=== PATIENT | female | born 1965 ===

== ENCOUNTER 2018-06-30 14:39 | Emergency (ER) | payer OTHER ==
[2018-06-30 15:07] VITALS: RESP 18; O2SAT 100; BMI 34.7
[2018-06-30 15:50] LABS: BASO # 0.01 K/mm3 (0.0-2.0); BASO % 0.2 % (0.0-3.0); EOS # 0.1 (0.0-0.7); EOS % 0.9 % (1.5-5.0); GRAN # 3.56 (1.4-6.5); GRAN % 62.4 % (50.0-68.0); HEMOGLOBIN 13.6 g/dL (12.0-16.0); LYMPH # 1.4 (1.2-3.4); LYMPH % 25.3 % (22.0-35.0); MEAN CELL VOLUME 86.5 fl (80.0-105.0); MEAN CORPUSCULAR HEMOGLOBIN 28.6 pg (25.0-35.0); MEAN CORPUSCULAR HGB CONC 33.1 g/dl (31.0-37.0); MEAN PLATELET VOLUME 9.8 fl (7.0-11.0); MONO # 0.6 (0.1-0.6); MONO % 11.2 % (1.0-6.0); RBC 4.75 10^6/uL (3.5-6.1); RED CELL DISTRIBUTION WIDTH 19.4 % (11.5-14.5); WHITE BLOOD COUNT 5.7 10^3/uL (4.5-11.0)
[2018-06-30 15:57] LABS: INR 1.03; PARTIAL THROMBOPLASTIN TIME 22.1 Seconds (25.1-36.5); PROTHROMBIN TIME 11.8 SECONDS (9.4-12.5)
[2018-06-30 15:59] LABS: ALB/GLOB RATIO 1.3 (1.1-1.8); ALBUMIN 4.4 g/dL (3.0-4.8); ALT/SGPT 20 U/L (7-56); AST/SGOT 32 U/L (14-36); BLOOD UREA NITROGEN 14 mg/dL (7-21); CALCIUM 9.9 mg/dL (8.4-10.5); GFR NON-AFRICAN AMERICAN > 60
[2018-06-30 16:17] LABS: PH,URINE 6.5 (4.7-8.0); URINE BILIRUBIN NEGATIVE (NEGATIVE); URINE BLOOD LARGE (NEGATIVE); URINE GLUCOSE (UA) NEGATIVE (NEGATIVE); URINE LEUKOCYTE ESTERASE NEGATIVE Leu/uL (NEGATIVE); URINE PROTEIN NEGATIVE mg/dL (<30 mg/dL); URINE UROBILINOGEN 0.2 E.U./dL (<1 E.U./dL)
[2018-06-30 16:20] LABS: URINE APPEARANCE SL CLOUDY (CLEAR); URINE COLOR YELLOW (YELLOW)
--- NOTE | 2018-06-30 16:22 | RAD ---
Date of service: 06/30/2018 PROCEDURE: Radiographs of the Right Shoulder HISTORY: fall COMPARISON: No prior. FINDINGS: BONES: Normal. No fracture. JOINTS: Normal. Glenohumeral and acromioclavicular joints preserved. No osteoarthritis. SOFT TISSUES: Normal. OTHER FINDINGS: None. IMPRESSION: Normal radiographs of the right shoulder.
--- NOTE | 2018-06-30 16:23 | RAD ---
Date of service: 06/30/2018 PROCEDURE: Radiographs of the left tibia and fibula. HISTORY: fall, leg pain COMPARISON: None available. TECHNIQUE: Frontal and lateral views obtained. FINDINGS: BONES: No fracture or destructive lesion. JOINT SPACES: Unremarkable. OTHER FINDINGS: None. IMPRESSION: Unremarkable radiographs of the left tibia and fibula.
[2018-06-30] MEDS ORDERED: Iodixanol 320 mg/ml 150 ml Bottle IV ONE (16:40)
[2018-06-30 16:46] LABS: URINE BACTERIA FEW (NEG); URINE RBC 15 - 20 /hpf (0-2)
--- NOTE | 2018-06-30 17:35 | ED PDOC ---
Arrival/HPI - General Chief Complaint: Trauma Time Seen by Provider: 06/30/18 14:40 Historian: Patient, Family, Other (coworker) - History of Present Illness Narrative History of Present Illness (Text): 06/30/18 17:32 53yr old female presents today with right shoulder pain, back pain, neck pain, left lower leg pain and upper abdominal pain s/p fall. pt states that she slipped and fell down 12 stairs. pt states she hit her head. no loc. pt denies numbness, weakness, tingling in the extremity. pt states incident occurred at 1: 30pm. no medications taken for pain. no other complaints. Time/Duration: 1-3 hours Symptom Onset: Sudden Symptom Course: Unchanged Quality: Aching, Throbbing Severity Level: Moderate Past Medical History - Provider Review Nursing Documentation Reviewed: Yes - Travel History Have you recently traveled outside [place] w/in the past 3 mons?: No - Infectious Disease Hx of Infectious Diseases: None - Cardiac Hx Cardiac Disorders: Yes Hx Cardiac Arrhythmia: Yes (TACHYCARDIA) Hx Hypertension: Yes - Pulmonary Hx Respiratory Disorders: No - Neurological Hx Neurological Disorder: Yes Hx Migraine: Yes - HEENT Hx HEENT Disorder: Yes (eyeglasses) - Renal Hx Renal Disorder: No - Endocrine/Metabolic Hx Endocrine Disorders: Yes Hx Hypothyroidism: Yes - Hematological/Oncological Hx Blood Disorders: No - Integumentary Hx Dermatological Disorder: Yes Other/Comment: lump to left shoulder, abrasion left knee - Musculoskeletal/Rheumatological Hx Musculoskeletal Disorders: No Hx Falls: Yes (dizzy/fell today denies loc) - Gastrointestinal Hx Gastrointestinal Disorders: Yes (obese, chronic constipation) Hx Gall Bladder Disease: Yes (gallstones) Hx Gastroesophageal Reflux: Yes Other/Comment: internal hemorrhoids, chronic gastritis - Genitourinary/Gynecological Hx Genitourinary Disorders: Yes (mammo 01/16/17) Other/Comment: dx 6 yrs ago in [place] with fibroids pt having heavy menstrual bleeding, fibroids grew larger instead of shrinking as per daughter. Pt came to [facility] 2 yrs ago chronic heavy periods continued having 1/2 cycles a month and 20 pads a day - Psychiatric Hx Psychophysiologic Disorder: No Hx Emotional Abuse: No Hx Physical Abuse: No Hx Substance Use: No - Surgical History Hx Cholecystectomy: Yes (lap mary) - Anesthesia Hx Anesthesia: Yes Hx Anesthesia Reactions: No Hx Malignant Hyperthermia: No - Suicidal Assessment Feels Threatened In Home Enviroment: No Family/Social History - Physician Review Nursing Documentation Reviewed: Yes Family/Social History: Unknown Family HX Smoking Status: Never Smoked Hx Alcohol Use: No Hx Substance Use: No Allergies/Home Meds Allergies/Adverse Reactions: Allergies No Known Allergies Allergy (Verified 07/08/16 12:16) Home Medications: Home Meds Medication Instructions Recorded Confirmed Simvastatin [Zocor] 20 mg PO DAILY 08/04/17 04/09/18 Omeprazole 20 mg PO BID 04/09/18 04/09/18 Review of Systems - Review of Systems Constitutional: absent: Fatigue, Fevers ENT: absent: Sore Throat, Epistaxis, Sinus Congestion Respiratory: absent: SOB, Cough Cardiovascular: absent: Chest Pain, Palpitations Gastrointestinal: Abdominal Pain. absent: Constipation, Diarrhea, Nausea, Vomiting Genitourinary Female: absent: Dysuria, Frequency, Hematuria, Urine Output C hanges Musculoskeletal: Arthralgias, Back Pain, Neck Pain Skin: absent: Rash, Pruritis Neurological: Headache. absent: Dizziness Psychiatric: absent: Anxiety, Depression Physical Exam Vital Signs Reviewed: Yes Vital Signs Temp Pulse Resp BP Pulse Ox 06/30/18 16:39 79 18 121/78 100 06/30/18 14:48 98.0 F 86 18 125/85 100 Temperature: Afebrile Blood Pressure: Normal Pulse: Regular Respiratory Rate: Normal Appearance: Positive for: Well-Appearing, Non-Toxic, Comfortable Pain Distress: None Mental Status: Positive for: Alert and Oriented X 3 - Systems Exam Head: Present: Atraumatic, Other (NO CABELLO SIGN). No: Tenderness, Swelling, Ecchymosis Pupils: Present: PERRL Extroacular Muscles: Present: EOMI Conjunctiva: Present: Normal Ears: Present: Normal, Normal Canal, Other (no hemotynpanum). No: Erythema Mouth: Present: Moist Mucous Membranes Pharnyx: Present: Normal Nose (External): Present: Atraumatic Nose (Internal): Present: Normal Inspection Neck: Present: Normal Range of Motion, Paraspinal Tenderness. No: MIDLINE TENDERNESS Respiratory/Chest: Present: Clear to Auscultation, Good Air Exchange. No: Respiratory Distress, Accessory Muscle Use Cardiovascular: Present: Regular Rate and Rhythm, Normal S1, S2. No: Murmurs Abdomen: Present: Tenderness (+ ruq/epigastric tenderness). No: Distention, Peritoneal Signs, Rebound, Guarding Back: Present: Normal Inspection, Paraspinal Tenderness Upper Extremity: Present: Normal Inspection, Normal ROM, NORMAL PULSES, Tenderness (right shoulder + ttp over anterior and posterior aspect of shoulder; full rom of shoulder with pain; sensation and distal pulses intact. ), Neurovascularly Intact, Capillary Refill < 2s. No: Swelling, Erythema Lower Extremity: Present: Normal Inspection, Normal ROM, Tenderness (left leg; + ttp over left tib fib; no edema, no erythema; no ecchymosis; full rom of leg; pelvis stable. ambulating with steady gait. ) Neurological: Present: GCS=15, Speech Normal, Motor Func Grossly Intact, Normal Sensory Function Skin: Present: Warm, Dry, Normal Color. No: Rashes Psychiatric: Present: Alert, Oriented x 3 Medical Decision Making ED Course and Treatment: 06/30/18 17:46 53yr old female presenting s/p fall down 12 steps. cbc;wnl cmp; wnl pt/ptt; wnl ua: + blood ct head; FINDINGS: HEMORRHAGE: No intracranial hemorrhage. BRAIN: No mass effect or edema. The rojas-white matter differentiation appears intact. Please note that MRI with diffusion imaging is more sensitive in the detection of acute ischemic event. VENTRICLES: No hydrocephalus. CALVARIUM: Unremarkable. PARANASAL SINUSES: Unremarkable as visualized. No significant inflammatory changes. MASTOID AIR CELLS: Fluid within bilateral mastoid air cells. Under aeration of the left air cells noted. Correlate clinically for history of mastoiditis. OTHER FINDINGS: None. IMPRESSION: No acute intracranial pathology identified. Fluid within bilateral mastoid air cells. Under aeration of the left air cells noted. Correlate clinically for history of mastoiditis. ct neck: Findings: Straightening of the normal cervical lordosis may be related to muscle spasm or positioning. There is no evidence of acute fracture or subluxation. There is preserved alignment, vertebral body height, intervertebral disc spaces. The prevertebral soft tissues and spinolaminar lines appear intact. The lateral masses are preserved. The dens tip is intact. There is proper alignment of the lateral masses of C1 with the C2 vertebral body. Included portions of the thyroid gland appear heterogeneous with suspected hypodense right mid/lower pole nodule. Included portions of lung apices appear clear. Fluid within bilateral partially imaged mastoid air cells. Impression: Straightening of the normal cervical lordosis may be related to muscle spasm or positioning. No evidence of acute fracture or subluxation. Included portions of the thyroid gland appear heterogeneous with suspected hypodense right mid/lower pole nodule. Outpatient thyroid ultrasound may be considered for further evaluation. Fluid within bilateral partially imaged mastoid air cells. Correlate clinically for possibility of mastoiditis. ct chest/abd/pelvis; FINDINGS: CT CHEST WITH CONTRAST: LUNGS: Clear. No nodule, mass or consolidation. MEDIASTINUM: Unremarkable. Normal caliber aorta and pulmonary arterial trunk. No aortic dissection. Normal size heart. LYMPH NODES: Unremarkable. PLEURA: Unremarkable. No pneumothorax. No pleural fluid. BONES: Unremarkable. OTHER FINDINGS: Heterogeneous enhancement of the right lobe of the thyroid possible thyroid nodule bilaterally. Recommend elective thyroid ultrasound. CT ABDOMEN AND PELVIS: LIVER: Unremarkable. No gross lesion or ductal dilatation. Incidental finding(s): Cyst right hepatic lobe 2.3 x 3.9 cm. GALLBLADDER AND BILE DUCTS: Status post cholecystectomy. No abnormality is seen in the gallbladder fossa. PANCREAS: Unremarkable. No gross lesion or ductal dilatation. SPLEEN: Unremarkable. ADRENALS: Unremarkable. No mass. KIDNEYS AND URETERS: Unremarkable. No hydronephrosis. No solid mass. VASCULATURE: No aortic atherosclerotic calcification or mural plaque present. Unremarkable. No aortic aneurysm. BOWEL: Unremarkable. No obstruction. No gross mural thickening. APPENDIX: No abnormalities to suggest acute appendicitis. No right lower quadrant inflammatory processes identified. PERITONEUM: Unremarkable. No free fluid. No free air. LYMPH NODES: Unremarkable. No enlarged lymph nodes. BLADDER: Unremarkable. REPRODUCTIVE: Enlarged, anteverted uterus, similar finding identified on the prior study. BONES: No acute fracture. OTHER FINDINGS: None. IMPRESSION: No acute findings related to/ accounting for the clinical presentation. Additional benign and/or incidental findings described above. xray right shoulder; no fracture xray left tib/fib; no fracture pt reassessment; pt feeling better with medications. discussed all results with patient and her daughters in depth; advised patient of ? of fluid in mastoid air cells, pt without symptoms of ear infection. no mastoid tenderness or erythema; advised patient to f/u with ENT specialist. advised patient of thyroid nodules and need for outpatient US. pt states she has hx of thyroid issues and had outpatient US about 1 year ago for nodules. advised f/u with orthopedist and PMD advised immediate return if symptoms worsen,persist or if new symptoms develop. copy of CT results of head given to patient. Patient verbalizes understanding of discharge instructions and need for immediate followup. all aspects of this case were discussed the attending of record. impression; headache, head injury, shoulder pain, leg pain, back pain , abdominal pain s/p fall Motrin every 6 hours as needed for pain Flexeril one tablet every 8 hours as needed for muscle spasms: May cause drowsiness Increase fluids Follow-up with the primary care physician within the next 2 days regarding abnormal findings of the thyroid on CAT scan Follow-up with the ENT specialist regarding abnormal findings of the mastoid air cell cells on CT Follow-up with the orthopedist within the next 2 days Return immediately if symptoms worsen persist or if new concerning symptoms develop Reassessment Condition: Re-examined, Improved - Lab Interpretations Lab Results: 06/30/18 15:44 06/30/18 15:44 Lab Results 06/30/18 16:06: Urine Color Yellow, Urine Appearance Sl cloudy, Urine pH 6.5, Ur Specific [place] 1.010, Urine Protein Negative, Urine Glucose (UA) Negative, Urine Ketones Negative, Urine Blood Large H, Urine Nitrate Negative, Urine Bilirubin Negative, Urine Urobilinogen 0.2, Ur Leukocyte Esterase Negative, Urine RBC 15 - 20, Urine WBC 2 - 5, Ur Epithelial Cells 4 - 5, Urine Bacteria Few 06/30/18 15:44: WBC 5.7, RBC 4.75, Hgb 13.6 D, Hct 41.1, MCV 86.5 D, MCH 28.6, MCHC 33.1, RDW 19.4 H, Plt Count 294, MPV 9.8, Gran % 62.4, Lymph % (Auto) 25.3, Moca % (Auto) 11.2 H, Eos % (Auto) 0.9 L, Baso % (Auto) 0.2, Gran # 3.56, Lymph # (Auto) 1.4, Moca # (Auto) 0.6, Eos # (Auto) 0.1, Baso # (Auto) 0.01 06/30/18 15:44: Sodium 139, Potassium 4.1, Chloride 101, Carbon Dioxide 28, Anion Gap 14, BUN 14, Creatinine 0.5 L, Est GFR ( Amer) > 60, Est GFR (No n-Af Amer) > 60, Random Glucose 113 H, Calcium 9.9, Total Bilirubin 0.5, AST 32, ALT 20, Alkaline Phosphatase 92, Total Protein 7.8, Albumin 4.4, Globulin 3.4, Albumin/Globulin Ratio 1.3 06/30/18 15:44: PT 11.8, INR 1.03, APTT 22.1 L - RAD Interpretation Radiology Orders: 06/30/18 15:34 CERVICAL SPINE W/O CONTRAST [CT] Stat CHEST,ABD,PEL W/IV CONT ONLY [CT] Stat HEAD W/O CONTRAST [CT] Stat 06/30/18 15:40 SHOULDER RIGHT [RAD] Stat TIBIA FIBULA LEFT [RAD] Stat - Medication Orders Current Medication Orders: Discontinued Medications Morphine Sulfate (Morphine) 2 mg IVP STAT STA Stop: 06/30/18 15:51 Last Admin: 06/30/18 16:12 Dose: 2 mg MAR Pain Assessment Document 06/30/18 16:12 [place] (Rec: 06/30/18 16:14 [id number] Pain Reassessment Is this a pain reassessment? No Sleep Is patient sleeping during reassessment? No Pain Scale Used Protocol: PSCALES Pain Scale Used Numeric Location Pain Location Body Site Shoulder Back Description Intensity of Pain at present 9 IVP Administration Document 06/30/18 16:12 [place] (Rec: 06/30/18 16:14 [id number] Charges for Administration # of IVP Administrations 1 Disposition/Present on Arrival - Present on Arrival Any Indicators Present on Arrival: No History of DVT/PE: No History of Uncontrolled Diabetes: No Urinary Catheter: No History of Decub. Ulcer: No History Surgical Site Infection Following: None - Disposition Have Diagnosis and Disposition been Completed?: Yes Diagnosis: Abdominal pain, Closed head injury, Back pain, Acute pain of right shoulder, Leg pain, Thyroid nodule, Abnormal head CT Disposition: HOME/ ROUTINE Disposition Time: 16:30 Patient Plan: Discharge Patient Problems: Current Active Problems Problem Status Onset Abdominal pain Acute Abnormal head CT Acute Acute pain of right shoulder Acute Back pain Acute Closed head injury Acute Leg pain Acute Thyroid nodule Acute Condition: GOOD Discharge Instructions (ExitCare): Closed Head Injury (DC), Acute Abdomen (Belly Pain), Low Back Pain in Adults, Shoulder Pain (DC) Additional Instructions: Motrin every 6 hours as needed for pain Flexeril one tablet every 8 hours as needed for muscle spasms: May cause drowsiness Increase fluids Follow-up with the primary care physician within the next 2 days regarding abnormal findings of the thyroid on CAT scan Follow-up with the ENT specialist regarding abnormal findings of the mastoid air cell cells on CT Follow-up with the orthopedist within the next 2 days Return immediately if symptoms worsen persist or if new concerning symptoms develop Prescriptions: Cyclobenzaprine [Cyclobenzaprine HCl] 10 mg PO Q8 #10 tab Ibuprofen [Motrin] 600 mg PO Q6H PRN #20 tab PRN Reason: pain/fever reduction Referrals: Nita Frye MD [Primary Care Provider] - Follow up with primary [facility] [Outside] - Follow up with primary Rustam Arciniega DO [Staff Provider] - Follow up with primary Rafal Munoz MD [Staff Provider] - Follow up with primary [facility] [Outside] - Follow up with primary Forms: [employer] (Greek), WORK NOTE
--- NOTE | 2018-06-30 17:42 | CT ---
Date of service: 06/30/2018 PROCEDURE: CT HEAD WITHOUT CONTRAST. HISTORY: headache COMPARISON: Noncontrast head CT performed 04/09/18 TECHNIQUE: Axial computed tomography images were obtained through the head/brain without intravenous contrast. Radiation dose: Total exam DLP = 865.54 mGy-cm. This CT exam was performed using one or more of the following dose reduction techniques: Automated exposure control, adjustment of the mA and/or kV according to patient size, and/or use of iterative reconstruction technique. FINDINGS: HEMORRHAGE: No intracranial hemorrhage. BRAIN: No mass effect or edema. The rojas-white matter differentiation appears intact. Please note that MRI with diffusion imaging is more sensitive in the detection of acute ischemic event. VENTRICLES: No hydrocephalus. CALVARIUM: Unremarkable. PARANASAL SINUSES: Unremarkable as visualized. No significant inflammatory changes. MASTOID AIR CELLS: Fluid within bilateral mastoid air cells. Under aeration of the left air cells noted. Correlate clinically for history of mastoiditis. OTHER FINDINGS: None. IMPRESSION: No acute intracranial pathology identified. Fluid within bilateral mastoid air cells. Under aeration of the left air cells noted. Correlate clinically for history of mastoiditis.
--- NOTE | 2018-06-30 17:54 | CT ---
Date of service:06/30/2018 CT cervical spine without IV contrast Indication: neck pain/ fall Comparison: None available Technique: Axial computed tomography images were obtained of the cervical spine without the use of intravenous contrast. Coronal and sagittal reformatted images were created and reviewed. This CT exam was performed using 1 or more of the following dose reduction techniques: Automated exposure control, adjustment of the MAA and/or kV according to patient size, and/or use of iterative reconstruction technique. Radiation dose: Total exam DLP = 695.04 mGy-cm. Findings: Straightening of the normal cervical lordosis may be related to muscle spasm or positioning. There is no evidence of acute fracture or subluxation. There is preserved alignment, vertebral body height, intervertebral disc spaces. The prevertebral soft tissues and spinolaminar lines appear intact. The lateral masses are preserved. The dens tip is intact. There is proper alignment of the lateral masses of C1 with the C2 vertebral body. Included portions of the thyroid gland appear heterogeneous with suspected hypodense right mid/lower pole nodule. Included portions of lung apices appear clear. Fluid within bilateral partially imaged mastoid air cells. Impression: Straightening of the normal cervical lordosis may be related to muscle spasm or positioning. No evidence of acute fracture or subluxation. Included portions of the thyroid gland appear heterogeneous with suspected hypodense right mid/lower pole nodule. Outpatient thyroid ultrasound may be considered for further evaluation. Fluid within bilateral partially imaged mastoid air cells. Correlate clinically for possibility of mastoiditis.
[2018-06-30 17:56] VITALS: BP 118/74; PULSE 75
--- NOTE | 2018-06-30 17:58 | CT ---
Date of service: 06/30/2018 PROCEDURE: CT Chest, Abdomen and Pelvis with intravenous contrast HISTORY: trauma/ fall down 12 stairs COMPARISON: 07/08/2016. CT abdomen and pelvis TECHNIQUE: IV dose administered: Radiation dose: Total exam DLP = 1479.66 mGy-cm. This CT exam was performed using one or more of the following dose reduction techniques: Automated exposure control, adjustment of the mA and/or kV according to patient size, and/or use of iterative reconstruction technique. FINDINGS: CT CHEST WITH CONTRAST: LUNGS: Clear. No nodule, mass or consolidation. MEDIASTINUM: Unremarkable. Normal caliber aorta and pulmonary arterial trunk. No aortic dissection. Normal size heart. LYMPH NODES: Unremarkable. PLEURA: Unremarkable. No pneumothorax. No pleural fluid. BONES: Unremarkable. OTHER FINDINGS: Heterogeneous enhancement of the right lobe of the thyroid possible thyroid nodule bilaterally. Recommend elective thyroid ultrasound. CT ABDOMEN AND PELVIS: LIVER: Unremarkable. No gross lesion or ductal dilatation. Incidental finding(s): Cyst right hepatic lobe 2.3 x 3.9 cm. GALLBLADDER AND BILE DUCTS: Status post cholecystectomy. No abnormality is seen in the gallbladder fossa. PANCREAS: Unremarkable. No gross lesion or ductal dilatation. SPLEEN: Unremarkable. ADRENALS: Unremarkable. No mass. KIDNEYS AND URETERS: Unremarkable. No hydronephrosis. No solid mass. VASCULATURE: No aortic atherosclerotic calcification or mural plaque present. Unremarkable. No aortic aneurysm. BOWEL: Unremarkable. No obstruction. No gross mural thickening. APPENDIX: No abnormalities to suggest acute appendicitis. No right lower quadrant inflammatory processes identified. PERITONEUM: Unremarkable. No free fluid. No free air. LYMPH NODES: Unremarkable. No enlarged lymph nodes. BLADDER: Unremarkable. REPRODUCTIVE: Enlarged, anteverted uterus, similar finding identified on the prior study. BONES: No acute fracture. OTHER FINDINGS: None. IMPRESSION: No acute findings related to/ accounting for the clinical presentation. Additional benign and/or incidental findings described above.
[2018-06-30 18:29] VITALS: TEMP 98.3
== END 2018-06-30 18:41 | disposition home or self-care (01) ==
LOC: ED 14:39
DX: S09.90XA Unspecified injury of head, initial encounter (principal); W10.9XXA Fall (on) (from) unspecified stairs and steps, initial encounter; Y92.89 Other specified places as the place of occurrence of the external cause; Y99.0 Civilian activity done for income or pay; R93.0 Abnormal findings on diagnostic imaging of skull and head, not elsewhere classified; E04.1 Nontoxic single thyroid nodule; R10.9 Unspecified abdominal pain; M54.9 Dorsalgia, unspecified; M25.511 Pain in right shoulder; M79.662 Pain in left lower leg
CPT/HCPCS: 70450; 71260; 72125; 73030; 73590; 74177; 80053; 81001; 85025; 85610; 85730; 96374; 99285; J2270; Q9967

== ENCOUNTER 2018-07-03 13:29 | Emergency (ER) | payer OTHER, SELFPAY ==
[2018-07-03 13:34] VITALS: RESP 18; TEMP 98.4; BMI 34.7
--- NOTE | 2018-07-03 14:17 | ED PDOC ---
Arrival/HPI <Acosta Rosario - Last Filed: 07/03/18 14:31> - General Historian: Patient, Family (Daughter) - History of Present Illness Narrative History of Present Illness (Text): 07/03/18 14:09 53 y o female with past medical hx of HTN, hypothyroidism, GERD, and HLD, presents to the ED c/o posterior IZAGUIRRE and numbness in toes of feet b/l. States she was recently seen in ED s/p work injury in which she fell down a flight of stairs. Pt was given Motrin and Flexeril prescriptions for pain. Today, states that she went to Workers' Comp doctor office at [facility] [place] in [place] yesterday and was given referral to Neurology. Pt returned to that clinic this am because of the new-onset numbness in toes of feet b/l that started last night, and then came straight to the ED. Denies pain in feet or difficulty walking. States her posterior IZAGUIRRE is unchanged from this past 06/30/18 during her ED visit, Ct head at time was negative for acute pathology. Rates IZAGUIRRE as 7/10 currently. Denies vision changes, tinnitus, or changes in mental status. Denies dizziness, chest pain, sob, n/v/d/c, abd pain, urinary complaints, or other symptoms. 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) PMD: none Time/Duration: 24 hours, Other (4 days) Symptom Onset: Sudden Symptom Course: Unchanged Quality: Unable to Describe Severity Level: 7 Activities at Onset: Rest Context: Home <Dawood Moscoso - Last Filed: 07/03/18 14:34> - General Chief Complaint: Headache Past Medical History - Provider Review Nursing Documentation Reviewed: Yes <Acosta Rosario - Last Filed: 07/03/18 14:31> - Infectious Disease Hx of Infectious Diseases: None - Cardiac Hx Cardiac Disorders: Yes Hx Cardiac Arrhythmia: Yes (TACHYCARDIA) Hx Hypertension: Yes - Pulmonary Hx Respiratory Disorders: No - Neurological Hx Neurological Disorder: Yes Hx Migraine: Yes - HEENT Hx HEENT Disorder: Yes (eyeglasses) - Renal Hx Renal Disorder: No - Endocrine/Metabolic Hx Endocrine Disorders: Yes Hx Hypothyroidism: Yes - Hematological/Oncological Hx Blood Disorders: No - Integumentary Hx Dermatological Disorder: Yes Other/Comment: lump to left shoulder, abrasion left knee - Musculoskeletal/Rheumatological Hx Musculoskeletal Disorders: No Hx Falls: Yes (dizzy/fell today denies loc) - Gastrointestinal Hx Gastrointestinal Disorders: Yes (obese, chronic constipation) Hx Gall Bladder Disease: Yes (gallstones) Hx Gastroesophageal Reflux: Yes Other/Comment: internal hemorrhoids, chronic gastritis - Genitourinary/Gynecological Hx Genitourinary Disorders: Yes (mammo 01/16/17) Other/Comment: [place] 6 [place]rs [place] pt having heavy menstrual bleeding, fibroids grew larger instead of shrinking as per daughter. Pt came to [facility] 2 yrs ago chronic heavy periods continued having 1/2 cycles a month and 20 pads a day - Psychiatric Hx Psychophysiologic Disorder: No Hx Emotional Abuse: No Hx Physical Abuse: No Hx Substance Use: No - Surgical History Hx Cholecystectomy: Yes (lap mary) - Anesthesia Hx Anesthesia: Yes Hx Anesthesia Reactions: No Hx Malignant Hyperthermia: No - Suicidal Assessment Feels Threatened In Home Enviroment: No <Dawood Moscoso - Last Filed: 07/03/18 14:34> Family/Social History - Physician Review Nursing Documentation Reviewed: Yes Family/Social History: No Known Family HX <Acosta Rosario - Last Filed: 07/03/18 14:31> Smoking Status: Never Smoked Hx Alcohol Use: No Hx Substance Use: No <Dawood Moscoso - Last Filed: 07/03/18 14:34> Allergies/Home Meds <Acosta Rosario - Last Filed: 07/03/18 14:31> <Dawood Moscoso - Last Filed: 07/03/18 14:34> Allergies/Adverse Reactions: Allergies No Known Allergies Allergy (Verified 07/08/16 12:16) Home Medications: Home Meds Medication Instructions Recorded Confirmed Simvastatin [Zocor] 20 mg PO DAILY 08/04/17 04/09/18 Omeprazole 20 mg PO BID 04/09/18 04/09/18 Review of Systems - Physician Review All systems were reviewed & negative as marked: Yes <Acosta Rosario - Last Filed: 07/03/18 14:31> - Review of Systems Eyes: absent: Vision Changes, Photophobia, Eye Pain ENT: absent: Hearing Changes, Tinnitus Cardiovascular: absent: Chest Pain, Palpitations, MAHONEY, Syncope Gastrointestinal: absent: Abdominal Pain, Constipation, Diarrhea, Nausea, Vomiting Skin: absent: Laceration Neurological: Headache. absent: Dizziness, Disequilibrium <Dawood Moscoso - Last Filed: 07/03/18 14:34> Physical Exam Vital Signs Temp Pulse Resp BP Pulse Ox 07/03/18 13:32 98.4 F 79 18 117/81 96 <Acosta Rosario - Last Filed: 07/03/18 14:31> Vital Signs Reviewed: Yes Vital Signs Temp Pulse Resp BP Pulse Ox 07/03/18 13:32 98.4 F 79 18 117/81 96 Temperature: Afebrile Blood Pressure: Normal Pulse: Regular Respiratory Rate: Normal Appearance: Positive for: Well-Appearing, Non-Toxic, Comfortable Pain Distress: None Mental Status: Positive for: Alert and Oriented X 3 - Systems Exam Head: Present: Atraumatic, Normocephalic, Tenderness. No: Contusion, Swelling, Ecchymosis, Laceration Pupils: Present: PERRL Extroacular Muscles: Present: EOMI Conjunctiva: Present: Normal Mouth: Present: Moist Mucous Membranes Neck: Present: Normal Range of Motion. No: JVD, Lymphadenopathy Respiratory/Chest: Present: Clear to Auscultation, Good Air Exchange. No: Respiratory Distress, Accessory Muscle Use, Wheezes, Rales, Rhonchi Cardiovascular: Present: Regular Rate and Rhythm, Normal S1, S2. No: Murmurs, Rub, Gallop Abdomen: Present: Normal Bowel Sounds. No: Tenderness, Distention, Rebound, Mass/Organomegaly Upper Extremity: Present: Normal Inspection, Normal ROM, NORMAL PULSES, Neurovascularly Intact, Capillary Refill < 2s, Norm 2-Pt Discrimination. No: Cyanosis, Edema, Tenderness Lower Extremity: Present: Normal Inspection, NORMAL PULSES, Normal ROM, Capillary Refill < 2 s, Other (Decreased sensation as per pt of all toes of b/l feet). No: Edema, CALF TENDERNESS Neurological: Present: GCS=15, CN II-XII Intact, Speech Normal, Motor Func Grossly Intact, Normal Cerebellar Funct, Norm Deep Tendon Reflexes, Gait Normal, Normal 2Pt Descrimination Skin: Present: Warm, Dry, Normal Color. No: Rashes Psychiatric: Present: Alert, Oriented x 3, Normal Insight, Normal Concentration <DanisDawood - Last Filed: 07/03/18 14:34> Medical Decision Making ED Course and Treatment: In agreement with resident note, which includes further HPI details. Patient was seen and evaluated with resident, came up with plan and treatment together. 53 year old female presents complaining of posterior headache and numbness of the toes bilaterally. Patient was recently seen 06/30/19 for similar complaints. Plan: -- Disposition 07/03/18 14:31 Seen and examined with the resident. 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 She fell at work last week and was seen in the emergency department. She had CT scan of the head neck chest abdomen and pelvis which were all unremarkable. She had unremarkable x-rays. She followed up with her Worker's Comp. M.D. yesterday and again today. She has an appointment with the neurologist in 4 days. She complains of continued headache and numbness of her left foot. Her exam is unremarkable. She is to keep the appointment with the neurologist and continue her current medications and to follow up in the emergency department for any new symptoms. <Acosta Rosario - Last Filed: 07/03/18 14:31> ED Course and Treatment: 07/03/18 14:19 53 y o female with posterior IZAGUIRRE unchanged from prior ED visit, and b/l numbness in toes of feet b/l. Discussed with pt that she needs to follow up with Neurology referral and her Workers' Comp doctor for further work-up of her injuries. No acute management indicated at this time. Pt to be discharged from ER at this time. All questions and concerns addressed with pt and pt's daughter, and both are agreeable to plan. Can continue to take Motrin and Flexeril prn for symptoms. <Dawood Moscoso - Last Filed: 07/03/18 14:34> - Scribe Statement The provider has reviewed the documentation as recorded by the Reena Hay Provider Scribe Attestation: All medical record entries made by the Scribe were at my direction and personally dictated by me. I have reviewed the chart and agree that the record accurately reflects my personal performance of the history, physical exam, medical decision making, and the department course for this patient. I have also personally directed, reviewed, and agree with the discharge instructions and disposition. <Acosta Rosario - Last Filed: 07/03/18 14:31> Disposition/Present on Arrival <Acosta Rosario - Last Filed: 07/03/18 14:31> - Present on Arrival Any Indicators Present on Arrival: No History of DVT/PE: No History of Uncontrolled Diabetes: No Urinary Catheter: No History of Decub. Ulcer: No History Surgical Site Infection Following: None - Disposition Have Diagnosis and Disposition been Completed?: Yes Disposition Time: 14:22 Patient Plan: Discharge <Dawood Moscoso - Last Filed: 07/03/18 14:34> - Disposition Diagnosis: Numbness of toes, Headache, History of fall Disposition: HOME/ ROUTINE Patient Problems: Current Active Problems Problem Status Onset Headache Acute History of fall Acute Numbness of toes Acute Condition: STABLE Discharge Instructions (ExitCare): Preventing Falls, Headache, Adult (DC) Additional Instructions: Please follow-up with your Workers' Comp Doctor at [facility] in [place] after ER discharge. Please follow-up with your Neurology referral given by your primary doctor. Can take Flexeril and Motrin as needed for symptoms. Should symptoms recur or worsen, please follow-up with your Workers' Comp Doctor or report to your nearest emergency department. Forms: [facility] (Bengali)
[2018-07-03 14:36] VITALS: BP 121/78; PULSE 76; O2SAT 98
== END 2018-07-03 14:36 | disposition home or self-care (01) ==
LOC: ED 13:29
DX: R20.0 Anesthesia of skin (principal); R51 Headache; Z91.81 History of falling; E03.9 Hypothyroidism, unspecified; E78.5 Hyperlipidemia, unspecified; I10 Essential (primary) hypertension